=== PATIENT | female | born 1995 | race African-American/Black ===

== ENCOUNTER 2018-03-12 12:32 | Day surgery (SDC) | payer BC ==
[2018-03-11 09:11] VITALS: BMI 15.7
--- NOTE | 2018-03-12 15:06 | HP ---
Past Medical History - Primary Care Physician PCP:: Julian Whelan - Admission Chief Complaint: 23yo P0 with pelvic pain and severe dysmenorrhea, suspected endometriosis admitted for laparoscopy, excision of endometriosis, biopsy, D&C. History of Present Illness: Failed trial of OCP, DMPA, NSAID. Pt was also seen and evaluated by Dr. Abrams. Pt reports some weight loss for unclear reasons. History Source: Patient, Medical Record Limitations to Obtaining History: No Limitations - Past Medical History [employer]: No: Alzheimer's, CVA, Dementia, Migraine, Multiple Sclerosis, Peripheral Neuropathy, Parkinson's, Seizure, Syncope, TIA, Vertigo, Other Cardiovascular: No: AFIB, Aneurysm, Aortic Insufficiency, Aortic Stenosis, CAD, CHF, Deep Vein Thrombosis, HTN, Hyperlipdemia, FL, Mitral Insufficiency, Mitral Stenosis, Murmur, Pulmonary Hypertension, Other Pulmonary: No: Asthma, Bronchitis, Cancer, COPD, O2 Dependent, Pneumonia, Previously Intubated, Pulmonary Embolus, Pulmonary Fibrosis, Sleep Apnea, Other Gastrointestinal: No: Ascites, Cancer, Constipation, Crohn's Disease, Diverticulitis, Diverticulosis, Esophageal Varices, Gastritis, GERD, GI Bleed, Hemorrhoids, Hiatal Hernia, Inflamatory Bowel Disease, Irritable Bowel Disease, Pancreatitis, Peptic Ulcer Disease, Ulcerative Colitis, Other Hepatobiliary: No: Cirrhosis, Cholelithiasis, Cholecystitis, Choledocholithiasis , Hepatitis A, Hepatitis B, Hepatitis C, Other Renal/: No: Renal Failure, Renal Inusuff, BPH, Cancer, Hematuria, Hemodialysis , Neurogenic Bladder, Renal Calculi, UTI, Other Reproductive: No: Ectopic , Endometriosis, Fibroids, PID, Polycystic Ovary Syndrome, Postmenopausal, Other Heme/Onc: No: Anemia, B12 Deficiency, Bleeding Disorder, Cancer, Current Chemotherapy, Current Radiation Therapy, Hemochromatosis, Hypercoaguable State, Myeloproliferative Synd, Sickle Cell Disease, Sickle Cell Trait, Thrombocytopenia, Other Infectious Disease: No: AIDS, C-Diff, Herpes Zoster, HIV, MRSA, STD's, Tuberculosis, VREF, Other Psych: No: Addictions, Anxiety, Bipolar, Depression, Panic, Psychosis, Schizophrenia, Other Musculoskeletal: No: Bursitis, Chronic low back pain, Hemiparesis, Hemiplegia, Osteoarthritis, Paraplegia, Other Rheumatology: No: Fibromyalgia, Gout, Lupus, Rheumatoid Arthritis, Sarcoidosis, Vasculitis, Other ENT: No: Allergic Rhinitis, Sinusitis, Other Endocrine: No: Sukhdeep's Disease, [place]'s Disease, Diabetes Insipidus, Diabetes Mellitus, Hyperparathyroidism, Hyperthyroidism, Hypothyroidism, Osteopenia, SIADH, Other Dermatology: No: Basal Cell, Cellulitis, Eczema, Melanoma, Psoriasis, Squamous Cell, Other - Past Surgical History Past Surgical History: Yes: None Hx Myomectomy: No Hx Transabdominal Cerclage: No - Smoking History Smoking history: Never smoked - Alcohol/Substance Use Hx Alcohol Use: Yes (OCCAS) History of Substance Use: reports: None - Social History Usual Living Arrangement: Yes: With Parent ADL: Independent Occupation: Floor Assembler for [employer] History of Recent Travel: No Home Medications - Allergies Allergies/Adverse Reactions: Allergies Allergy/AdvReac Type Severity Reaction Status Date / Time No Known Allergies Allergy Verified 03/11/18 09:03 - Home Medications Home Medications: Ambulatory Orders NK [No Known Home Medication] 03/11/18 Family Disease History - Family Disease History Family Disease History: Diabetes: Mother (HTN, fibroids), Other: Mother Review of Systems - Review of Systems Constitutional: reports: No Symptoms Eyes: reports: No Symptoms HENT: reports: No Symptoms Neck: reports: No Symptoms Cardiovascular: reports: No Symptoms Respiratory: reports: No Symptoms Gastrointestinal: reports: No Symptoms Genitourinary: reports: No Symptoms Breasts: reports: No Symptoms Reported Musculoskeletal: reports: No Symptoms Integumentary: reports: No Symptoms Neurological: reports: No Symptoms Endocrine: reports: No Symptoms Hematology/Lymphatic: reports: No Symptoms Psychiatric: reports: No Symptoms Pain Intensity: 0 Physical Exam-EXTRUSION TECHNICIAN Vital Signs: Vital Signs Temperature 98.4 F 03/12/18 13:18 Pulse Rate 76 03/12/18 13:18 Respiratory Rate 20 03/12/18 13:18 Blood Pressure 125/80 03/12/18 13:18 O2 Sat by Pulse Oximetry (%) 100 03/12/18 13:19 Constitutional: Yes: Well Nourished, No Distress, Calm Eyes: Yes: WNL, Conjunctiva Clear HENT: Yes: WNL, Atraumatic, Normocephalic Neck: Yes: WNL, Supple, Trachea Midline Cardiovascular: Yes: WNL, Regular Rate and Rhythm Respiratory: Yes: WNL, Regular, CTA Bilaterally Gastrointestinal: Yes: WNL, Normal Bowel Sounds, Soft ...Rectal Exam: Yes: Deferred Renal/: Yes: WNL Pelvis: Yes: WNL External Genitalia: Yes: Normal Internal Exam Deferred: No Vaginal Exam: Yes: Normal, Bleeding (menses) Cervix: Yes: Normal Uterus: Yes: Normal Adnexa: Normal: Left, Right Musculoskeletal: Yes: WNL Extremities: Yes: WNL Integumentary: Yes: WNL Neurological: Yes: WNL, Alert, Oriented ...Motor Strength: WNL Psychiatric: Yes: WNL, Alert, Oriented Imaging - Results Ultrasound: Report Reviewed Assessment/Plan 23yo P0 with pelvic pain and severe dysmenorrhea, suspected endometriosis admitted for laparoscopy, excision of endometriosis, biopsy, D&C. We had discussed the risks, benefits, alternatives of surgery at length including but not limited to infection, bleeding, scarring, perforation, amenorrhea, infertility, hysterectomy, injury to surrounding/underlying organs or structure , need for additional surgery to repair/treat any complications, etc. The patient verbalized understanding and requested to proceed with surgery. I emphasized that all surgeries have risks and no guarantees can be provided.
[2018-03-12] MEDS ORDERED: DEXAMETHASONE SOD PHOSPHATE 4 MG/1 ML VIAL ONE (15:20)
[2018-03-12] MEDS ORDERED: SUCCINYLCHOLINE CHLORIDE 200 MG/10 ML VIAL ONE (15:20)
[2018-03-12] MEDS ORDERED: LIDOCAINE HCL/PF 2% SDV 5ML VIAL ONE (15:20)
[2018-03-12] MEDS ORDERED: ONDANSETRON 4 MG/2 ML VIAL ONE (15:20)
[2018-03-12] MEDS ORDERED: KETOROLAC TROMETHAMINE 30 MG/1 ML VIAL ONE (15:20)
[2018-03-12] MEDS ORDERED: PROPOFOL 20 ML ONE (15:25)
[2018-03-12] MEDS ORDERED: ceFAZolin SODIUM 1 GM VIAL IVPB ONE (15:37)
[2018-03-12] MEDS ORDERED: ROCURONIUM BROMIDE 50 MG/5 ML VIAL ONE (15:58)
[2018-03-12] MEDS ORDERED: NEOSTIGMINE METHYLSULFATE 0.5 MG/ML - 10 ML MDV ONE (16:57)
[2018-03-12] MEDS ORDERED: GLYCOPYRROLATE 0.2 MG/1 ML VIAL ONE ×2 (16:57)
[2018-03-12] MEDS ORDERED: PROMETHAZINE HCL 25 MG/1 ML VIAL IVPUSH PRN (17:14)
[2018-03-12] MEDS ORDERED: oxyCODONE HCL 5 MG TABLET PO PRN (17:14)
[2018-03-12] MEDS ORDERED: ONDANSETRON 4 MG/2 ML VIAL IVPUSH PRN (17:14)
[2018-03-12] MEDS ORDERED: LACTATED RINGERS SOLUTION 1,000 ML IV SCH (17:15)
[2018-03-12 17:55] VITALS: TEMP 97.5
[2018-03-12] MEDS ORDERED: IBUPROFEN 600 MG TABLET (FP) PO PRN (18:12)
[2018-03-12] MEDS ORDERED: ACETAMINOPHEN 325 MG TABLET (FP) PO PRN (18:12)
--- NOTE | 2018-03-12 18:18 | OP ---
Operative Note - Note: Operative Date: 03/12/18 Pre-Operative Diagnosis: Pelvic pain, dysmenorrhea, endometriosis Operation: Laparoscopy, lysis of multiple severe adhesions, resection of endometriosis, D&C Findings: EUA= small anteverted uterus with normal mobility, no masses Laparoscopy= multile dense adhesions b/w bowel and anterior abdominal wall, multiple dark endometriosis implants in cul-de-sac, bilateral pelvic side-devries and uterosacral ligaments. Normal liver, gallbladder, uterus, ovaries,, tubes Post-Operative Diagnosis: Same as Pre-op Surgeon: Julian Whelan Assistant Administrator: Alaina Gutierrez Anesthesiologist/SPLICING TECHNICIAN: Andrea Armas Anesthesia: General Specimens Removed: Endometrial curettings, endometriosis implants from b/l pelvic sidewalls, cul-de-sac Drains & Tubes with Location: Shahid cath Drains, Volume Out (mls): 50 Blood Volume Replaced (mls): 0 Fluid Volume Replaced (mls): 1,400 Operative Report Dictated: Yes
[2018-03-12] MEDS ORDERED: IBUPROFEN 600 MG TABLET (FP) PO ONE (19:40)
[2018-03-12 20:03] VITALS: BP 117/64; PULSE 91
--- NOTE | 2018-03-12 21:26 | OP ---
DATE OF OPERATION: 03/12/2018 PREOPERATIVE DIAGNOSIS: Pelvic pain, severe dysmenorrhea, and suspected endometriosis. POSTOPERATIVE DIAGNOSIS: Confirmed endometriosis, pelvic pain, and dysmenorrhea. PROCEDURE: Dilation and curettage, laparoscopic lysis of severe, multiple, dense, thick adhesions between the bowel and anterior abdominal wall, excision and resection of endometriosis of pelvis, and endometriosis ablation. SURGEON: Ricardo Whelan MD OBSTETRICAL ANESTHESIOLOGIST: Alaina Gutierrez MD ANESTHESIA: General endotracheal. ANESTHESIOLOGIST: Andrea Armas MD COMPLICATIONS: None. ESTIMATED BLOOD LOSS: Less than 5 mL. INTRAVENOUS FLUIDS: 1400 mL of crystalloid. URINE OUTPUT: 50 mL of clear urine at the end of the procedure. PATHOLOGY: Endometrial curettings, excised fragments of endometriosis from bilateral pelvic sidewalls, cul-de-sac. PROCEDURE: The patient was met preoperatively. We had a long discussion regarding the surgical risks, benefits, and alternatives. We discussed that the suspicion of endometriosis can be confirmed by laparoscopy; however, medical management can be attempted before surgery or after, if necessary. Also explained that endometriosis may not be always cured or improved by surgery and endometriosis can recur later in life. Also discussed the risks of infection, bleeding, injury to surrounding or underlying organs and structures, need for surgery to repair any injury or to address endometriosis in the future, etc. The patient verbalized understanding and requested to proceed with surgery. The patient was then brought to the operating room with an IV running. She was placed on the surgical table in a supine position. The general anesthesia was achieved without difficulty. The patient was then placed in a dorsal lithotomy position using adjustable Too stirrups. The patient was examined under anesthesia. The patient was noted to have a small anteverted uterus with a normal degree of mobility. Palpation of the uterosacral ligaments did not reveal nodularity. No pelvic masses were noted. The timeout procedure was then conducted as per standard protocol. The patient was prepped and draped in the usual sterile fashion. A sterile speculum was introduced inside the vagina, with good visualization of the cervix. The cervix was grasped with a single-tooth tenaculum. The cervical os was dilated to accommodate a size 21 Avalos dilator. A gentle uterine curettage was performed and tissue was submitted to Pathology. After the curettage was completed, a HUMI uterine manipulator was introduced inside the uterus. The surgeons then proceeded with the laparoscopy. A 5-mm incision was made inside the umbilicus. A Veress needle was introduced through the umbilical incision into peritoneal cavity. Intraperitoneal placement was confirmed. The pneumoperitoneum was then produced using CO2 gas, with intraabdominal pressure limited to 15 mmHg. The Veress needle was then removed and a 5-mm Optiview trocar was used to gain entry into the peritoneal cavity through the umbilical incision. Atraumatic placement was confirmed. The survey of the abdomen and pelvis showed multiple dense adhesions between the bowel and anterior abdominal wall. The adhesions were especially dense and severe on the patient's right side of the abdomen. The liver, gallbladder, and stomach appeared to be within normal limits. The visualized areas of bowel appeared to be within normal limits. The uterus appeared to be normal. Bilateral fallopian tubes and ovaries appeared to be normal. There were multiple dark endometriosis implants around bilateral uterosacral ligaments. There were multiple endometriosis implants in the cul-de-sac. There were endometriosis implants also bilaterally in the area of ovarian fossa. A 2nd incision was then made in the left lower quadrant and the 5-mm trocar was placed under direct visualization. A third 5-mm incision then made in the right lower quadrant and the trocar was placed under direct visualization. Multiple dense adhesions were then lysed using a Harmonic scalpel. Good hemostasis was maintained. Once complete visualization of the abdomen and pelvis was achieved and all of the adhesions were taken down, the endometriosis implants were excised everywhere where it could be visualized. Most of the endometriosis implants were noted in the posterior cul-de-sac as well as around the bilateral uterosacral ligaments. The ureters were visualized and traced bilaterally. Care was taken during surgery to stay away from the ureters and bowel. Good hemostasis was maintained. Once all of the visible endometriosis implants and adhesions were excised, the pelvis and abdomen were irrigated with copious amounts of normal saline. The saline was aspirated and good hemostasis was confirmed. The pneumoperitoneum was reduced. All of the instruments were removed from the patient. Good hemostasis once again was confirmed. The incisions were closed using a 4-0 Biosyn suture. The Shahid catheter and HUMI were removed and the patient was transferred to the recovery room in stable condition. Sponge, lap, and instrument counts were correct. The patient tolerated procedure well and is expected to be discharged to home if she remains stable. RICARDO WHELAN M.D. [id number]
--- NOTE | 2018-03-17 18:07 | PATH ---
Surgical Pathology Report Patient Name: DARIO SCHULTZ [facility]. Rec. #: [id number] /Age/Gender: 1995 (Age: 23) / F Account: [id number] Location: [facility] SURGICAL Taken: 03/12/2018 Received: 03/13/2018 Reported: 03/17/2018 Physicians: Julian Whelan M.D. Specimen(s) Received A: ENDOMETRIAL CURETTINGS B: TISSUE OF LEFT PELVIC SIDE WALL #1 C: TISSUE OF LEFT PELVIC SIDE WALL #2 D: TISSUE OF RIGHT PELVIC SIDE WALL #1 E: TISSUE OF RIGHT PELVIC SIDE WALL #2 F: TISSUE OF POSTERIOR CUL DE SAC Clinical History Endometriosis, pelvic pain, dysmenorrhea Final Diagnosis A. ENDOMETRIAL CURETTINGS, DILATION AND CURETTAGE: FRAGMENTS OF ENDOCERVICAL AND ENDOMETRIAL POLYP AND BENIGN CERVICAL TISSUE. B. PELVIC SIDEWALL #1, LEFT, ENDOMETRIOSIS, BIOPSY: ENDOMETRIOSIS. C. PELVIC SIDEWALL #2, LEFT, ENDOMETRIOSIS, BIOPSY: ENDOMETRIOSIS. D. PELVIC SIDEWALL #1, RIGHT, ENDOMETRIOSIS, BIOPSY: CONSISTENT WITH ENDOMETRIOSIS. SEE COMMENT. E. PELVIC SIDEWALL #2, RIGHT, ENDOMETRIOSIS, BIOPSY: ENDOMETRIOSIS. F. POSTERIOR CUL-DE-SAC, ENDOMETRIOSIS, BIOPSY: CONSISTENT WITH ENDOMETRIOSIS. SEE COMMENT. Comment: Immunohistochemical stains performed on blocks (B,D,F) at [place], [place] ([id number]) and interpreted at [facility] for CD10 highlight the endometrial stroma, supporting the above diagnosis. Electronically Signed Nehal Rossi M.D. Gross Description A. Received in formalin labeled "endometrial curetting," is a 2.0 x 1.7 x 0.3 cm aggregate of loza soft tissue fragments. The formalin is filtered and the specimen is entirely submitted in one cassette. B. Received in formalin labeled "endometriosis left pelvic sidewall," is a 1.1 x 0.8 x 0.3 cm loza-brown, irregular portion of fibrous tissue. The specimen is submitted in toto in one cassette. C. Received in formalin labeled "endometriosis left pelvic sidewall #2," is a 1.1 x 0.6 x 0.2 cm loza portion of fibrous tissue. The specimen is submitted in toto in one cassette. D. Received in formalin labeled "endometriosis right pelvic sidewall #1," is a 0.8 x 0.7 x 0.2 cm loza-brown portion of fibrous tissue. The specimen is submitted in toto in one cassette. E. Received in formalin labeled "endometriosis right pelvic sidewall #2," is a 0.8 x 0.7 x 0.2 cm loza-brown portion of fibrous tissue. The specimen is submitted in toto in one cassette. F. Received in formalin labeled "endometriosis posterior cul-de-sac," are 3 loza brown fragments of fibrous tissue ranging from 0.8 x 0.5 x 0.2 cm to 1.0 x 0.9 x 0.3 cm. The specimens are submitted in toto in one cassette. 03/13/2018 saudi03/13/2018
== END 2018-03-12 20:00 | disposition home or self-care (01) ==
LOC: JASU-SURG 12:32
PROVIDERS: ATTEND Obstetrics & Gynecology
PROC: 0DNW4ZZ Release Peritoneum, Percutaneous Endoscopic Approach (ICD-10-PCS; 2018-03-12)
PROC: 0U5F4ZZ Destruction of Cul-de-sac, Percutaneous Endoscopic Approach (ICD-10-PCS; principal; 2018-03-12 14:30)
PROC: 0UDB7ZX Extraction of Endometrium, Via Natural or Artificial Opening, Diagnostic (ICD-10-PCS; 2018-03-12 14:30)
DX: N80.3 Endometriosis of pelvic peritoneum (principal); N94.6 Dysmenorrhea, unspecified; R10.2 Pelvic and perineal pain; N73.6 Female pelvic peritoneal adhesions (postinfective)
CPT/HCPCS: 36415; 84703; 86850; 86900; 86901; 88305-TC; 94760